=== PATIENT | male | born 1995 | race Caucasian/White ===

== ENCOUNTER 2019-12-01 23:33 | Emergency (ER) | payer OTHER ==
[~2019-12-01] VITALS: Ht 167.6 cm; Wt 71.2 kg
[2019-12-02 00:57] VITALS: BP 156/80
--- NOTE | 2019-12-03 17:05 | EKG ---
[place] [address] ELECTROCARDIOGRAM REPORT Name: MEREDITH ZIMMER Room: [facility] Lavinia#: [id number] Admission: 12/01/19 Attend Phys: Discharge: 12/02/19 Date of : [birth year] Report #: [id number] THIS REPORT FOR: //name// [facility] ED Test Date: 2019-12-01 Test Time: 23:39:36 Pat Name: MEREDITH ZIMMER Department: Room: Gender: M Independent Film Maker: GEORGE : 1995 Requested By: Rama Bill Order Number: [id number] Sandra MD: Paras Fields Measurements Intervals [place] Rate: 135 P: 80 MI: 106 QRS: 65 QRSD: 88 T: 78 QT: 404 QTc: 606 Interpretive Statements Sinus tachycardia Prolonged QT interval No previous ECG available for comparison Electronically Signed On 12-03-2019 17:05:17 TECHNICAL LEAD by Paras Fields [email or web address] <ELECTRONICALLY SIGNED> By: Paras Fields MD, [facility] 12/03/19 1705 [id number] Paras Fields MD, FACC /EPI
== END 2019-12-02 00:59 ==
LOC: M.ERS 23:33
DX: R00.0 Tachycardia, unspecified (principal); R45.0 Nervousness

== ENCOUNTER 2019-12-03 05:54 | Emergency (ER) | payer OTHER ==
[~2019-12-03] VITALS: Ht 167.6 cm; Wt 68.0 kg
[2019-12-03 06:25] VITALS: BP 146/81
== END 2019-12-03 06:25 | disposition left against medical advice (07) ==
LOC: M.ERS 05:54
DX: F29 Unspecified psychosis not due to a substance or known physiological condition (principal)